=== PATIENT | female | born 1965 | race Caucasian/White ===

== ENCOUNTER 2019-09-13 09:48 | Outpatient (CLI) | payer OTHER, SELFPAY ==
--- NOTE | 2019-09-13 10:06 | MM_ITS ---
WS: [id number] BILATERAL SCREENING DIGITAL MAMMOGRAM WITH CAD HISTORY: SCREENING COMPARISON: 05/29/2017 and 01/22/2015 Bilateral CC and MLO views submitted. Computer aided detection analyzed. Breast composition: There are scattered areas of fibroglandular density. No suspicious masses, microc alcifications or architectural distortion. Stable intramammary lymph nodes upper outer quadrant of ea ch breast. MM/[place] [id number] IMPRESSION: BI-RADS: 2-Benign FOLLOW UP: 1 Year Follow-up
== END 2019-09-13 09:49 | disposition home or self-care (01) ==
LOC: RADSHAW 09:54
PROVIDERS: PCP Registered Nurse; Visit Provider Registered Nurse
DX: Z12.31 Encounter for screening mammogram for malignant neoplasm of breast (principal)
CPT/HCPCS: 77067

== ENCOUNTER → 2020-04-24 13:41 | Outpatient (BNVA) | payer OTHER, SELFPAY | PROVIDERS: PCP Registered Nurse; Visit Provider Nurse Practitioner Family | DX: Z11.59 Encounter for screening for other viral diseases (principal) | CPT/HCPCS: 87635 ==

== ENCOUNTER → 2020-05-26 11:59 | Outpatient (BNVA) | payer OTHER, SELFPAY | PROVIDERS: PCP Registered Nurse; Visit Provider Nurse Practitioner Family | DX: Z20.828 Contact with and (suspected) exposure to other viral communicable diseases (principal) | CPT/HCPCS: 87635 ==

== ENCOUNTER → 2020-07-08 15:52 | Outpatient (BNVA) | payer OTHER, SELFPAY | PROVIDERS: PCP Registered Nurse; Visit Provider Nurse Practitioner Family | DX: Z20.828 Contact with and (suspected) exposure to other viral communicable diseases (principal) | CPT/HCPCS: 87635 ==

== ENCOUNTER 2022-05-10 15:47 | Outpatient (CLI) | payer OTHER, SELFPAY ==
--- NOTE | 2022-05-10 16:08 | MM_ITS ---
WS: [id number] BILATERAL 3D TOMOSYNTHESIS DIGITAL SCREENING MAMMOGRAPHY WITH CAD CLINICAL INFORMATION: SCREENING HISTORY: Screening mammogram. No current complaints. COMPARISON: September 13, 2019 TECHNIQUE: Bilateral CC and MLO views. FINDINGS: Scattered fibroglandular densities bilaterally. No suspicious focal mass, asymmetry, calcifications, or architectural distortion. No evidence of malignancy. A few incidental punctate calcifications. MM/[place] [id number] IMPRESSION: BI-RADS: 2-Benign FOLLOW UP: 1 Year Follow-up Recommend return to annual screening mammography.
== END 2022-05-10 15:48 | disposition home or self-care (01) ==
PROVIDERS: PCP Registered Nurse; Visit Provider Family Medicine
DX: Z12.31 Encounter for screening mammogram for malignant neoplasm of breast (principal)
CPT/HCPCS: 77063; 77067

== ENCOUNTER 2024-05-19 16:35 | Emergency (ER) | payer SELFPAY ==
[2024-05-19 17:13] VITALS: BP 131/83; PULSE 75; RESP 16; TEMP 36.7; O2SAT 98; BMI 24.0
--- NOTE | 2024-05-19 18:24 | XRR_ITS ---
PROCEDURE INFORMATION: Exam: XR Lumbosacral Spine Exam date and time: 05/19/2024 6:26 PM Age: 59 years old Clinical indication: Lumbago; Patient HX: Lower back pain post fall; Additional info: Injury low back pain TECHNIQUE: Imaging protocol: Radiologic exam of the lumbosacral spine. Views: 2 or 3 views. COMPARISON: No relevant prior studies available. FINDINGS: Bones/joints: Moderate multilevel spondylosis of the lumbar spine with facet arthrosis and osteophytosis. No evidence of acute fracture or subluxation. The sacrum is grossly intact. Soft tissues: Grossly unremarkable. XR/XR lumbar spine 2-3V* [id number] IMPRESSION: 1. No evidence of acute fracture or subluxation of the lumbar spine. If there is ongoing clinical suspicion for traumatic injury, consider correlation with CT.
--- NOTE | 2024-05-19 18:24 | XRR_ITS ---
PROCEDURE INFORMATION: Exam: XR Right Knee Exam date and time: 05/19/2024 6:26 PM Age: 59 years old Clinical indication: Right; Patient HX: RT knee pain post fall; Swelling TECHNIQUE: Imaging protocol: Radiologic exam of the right knee. Views: 3 views. COMPARISON: No relevant prior studies available. FINDINGS: Bones/joints: No evidence of acute fracture or subluxation. Moderate joint effusion. Sequela of Shohola Schlatter noted. Soft tissues: No gross soft tissue abnormality. XR/XR knee RT 3V* [id number] IMPRESSION: 1. Moderate joint effusion without evidence of acute fracture or subluxation raising the question of a radiographically occult fracture. CT may be helpful for further detail if clinically warranted.
--- NOTE | 2024-05-19 18:30 | ED_ITS ---
HPI - Back Pain/Injury General: Chief Complaint: Back Pain/Injury Stated Complaint: back injuy Time Seen by Provider: 05/19/24 18:03 History of Present Illness: 59-year-old female who comes in after brian redd to put up an expandable house. She notes that the floor was folded up, and as they were working, it fell in on her. It hit her in the low back, and she twisted her right knee. She complains mainly of pain across the very low back. Pain originally radiated down her legs, but is not now. She denies numbness and tingling. She denies significant weakness. No loss of bowel or bladder function. She took hydrocodone without much relief. She is having trouble walking due to the pain. She also has a painful swollen right knee, which she says is a more minor injury. Related Data Previous Rx's Medication Instructions Recorded hydrocodone 5 mg-acetaminophen 325 1 tab PO Q8H PRN pain #7 tabs 05/19/24 mg tablet methylprednisolone 4 mg tablets in See Rx Instructions PO .COMPLEX 05/19/24 a dose pack (Medrol (Sean)) #21 ea Allergies Allergy/AdvReac Type Severity Reaction Status Date / Time No Known Allergies Allergy Verified 07/08/20 14:39 [facility] ED PFSH: Social History Smoking and tobacco/nicotine status: former use of tobacco/nicotine Physical Exam Const: COMMON NORMALS: no acute distress GENERAL APPEARANCE: cooperative; not ill appearing and not frail appearing HENMT: COMMON NORMALS: normocephalic, atraumatic and Normal external nose present HEAD & SCALP: normocephalic and atraumatic FACE & SINUS: normal facial exam and face symmetric NOSE: Normal external nose present Eye: COMMON NORMALS: Equal, round and reactive pupils present and EOMs intact bilaterally PUPIL: Yes Equal, round and reactive pupils present Neck/C-Spine: GENERAL: Yes trachea midline Chest: CHEST: Yes Symmetrical chest wall rise Resp: COMMON NORMALS: normal respiratory effort, No retractions, No use of accessory muscles and clear to auscultation bilaterally AUSCULTATION: clear to auscultation bilaterally Cardio: COMMON NORMALS: regular rate and regular rhythm RATE: regular rate RHYTHM: regular rhythm GI: COMMON NORMALS: Normal to inspection, nondistended, normoactive bowel sounds present Back/Pelvis: OTHER: Pain across the first sacral segment, and bilateral SI joints in the superior region. Mild midline L5 pain. No paraspinal pain. Straight leg raise is negative bilaterally. Extremity: NARRATIVE EXTREMITY EXAM: Right knee mild effusion. No deformity. Minimal tenderness. Some mild discomfort with range of motion. Neuro: GUERA COMA SCALE: document GCS findings [place] coma scale eye opening: Spontaneous [place] coma scale verbal response: Orientated [place] coma scale motor response: Obey commands [place] coma scale total score: 15 SENSORY EXAM: Yes extremities (intact) Psych: COMMON NORMALS: speech normal SPEECH: Yes normal speech Skin: COMMON NORMALS: no rashes or lesions noted GENERAL SKIN EXAM: no rashes or lesions noted Course Vital Signs: Vital signs: Vital Signs Temperature 98.1 F 05/19/24 17:13 Pulse Rate 80 05/19/24 20:16 Respiratory Rate 16 05/19/24 17:13 Blood Pressure 134/78 05/19/24 20:16 Pulse Oximetry 100 05/19/24 20:16 MDM - Back Pain/Injury Medical Decision Making Knee joint effusion present on the right. No definite fracture. She will be placed in a knee immobilizer. No fractures in the back. There is grade 1 listhesis of L5 on S1. Labs Radiology Impressions Knee X-Ray 05/19/24 18:24 IMPRESSION: 1. Moderate joint effusion without evidence of acute fracture or subluxation raising the question of a radiographically occult fracture. CT may be helpful for further detail if clinically warranted. Lumbar Spine X-Ray 05/19/24 18:24 IMPRESSION: 1. No evidence of acute fracture or subluxation of the lumbar spine. If there is ongoing clinical suspicion for traumatic injury, consider correlation with CT. XR interpretation done by ED provider, pending radiology final review Discharge Plan Discharge Patient Disposition: Home Clinical Impression: Lumbar contusion, Injury of knee, right, Effusion of knee joint right Condition: Stable Prescriptions: New hydrocodone-acetaminophen 5-325 mg tablet 1 tab PO Q8H PRN (Reason: pain) Qty: 7 0RF methylprednisolone [Medrol (Sean)] 4 mg tablets,dose pack See Rx Instructions .ROUTE .COMPLEX Qty: 21 0RF Rx Instructions: orally per package directions Discharge Orders: Discharge ED (Routine); Ordered 05/19/24 Ordered By: Baron Berkowitz Referrals: Anh Bryant FNP [Primary Care Provider] - 4-7 days Patient Instructions: Acute Low Back Pain (ED), Contusion in Adults (ED), Swollen Knee Joint (ED), Opioid Safety, Pain Management Activity Restrictions/Additional Instructions: Call your doctor tomorrow for follow-up appointment this week. Do not stay in the knee immobilizer for more than 5 days to a week. Ice for pain and swelling to both areas. Medication as needed. Return for any problems. Coding Level of Care Code ED Erecting Crane Operator for Ondina Kirkland
[2024-05-19] MEDS: HYDROmorphone 1 mg/mL INJ 1 mL IM (18:52)
[2024-05-19] MEDS: ondansetron 4 MG Tablet PO (18:52)
[2024-05-19 20:16] VITALS: BP 134/78; PULSE 80; O2SAT 100
[2024-05-19] MEDS: oxyCODONE-APAP 5-325 mg Tablet 2 TAB PO (20:23)
== END 2024-05-19 20:24 | disposition home or self-care (01) ==
PROVIDERS: Emergency Provider Emergency Medicine; PCP Registered Nurse
DX: S30.0XXA Contusion of lower back and pelvis, initial encounter (principal); S89.91XA Unspecified injury of right lower leg, initial encounter; M25.461 Effusion, right knee; X58.XXXA Exposure to other specified factors, initial encounter
CPT/HCPCS: 72100; 73562; 96372; 99284; J1171; Q0162

== ENCOUNTER 2024-11-28 08:30 | Outpatient (CLI) | payer SELFPAY ==
--- NOTE | 2024-11-28 08:37 | MR_ITS ---
WS: [id number] MRI RIGHT SHOULDER HISTORY: NONTRAUMATIC COMPLETE TEAR OF R ROTATOR CUFF COMPARISON: None available. TECHNIQUE: Multiplanar sequences of the shoulder joint are submitted. Moderate AC joint arthritis. AC joint is narrowed with hypertrophic osteophytes. No os acromion. Split tear of the biceps tendon in the bicipital groove. Biceps tendon is being slightly displaced by humeral head osteophytes. Atrophy of the distal acromion. Moderate narrowing of the glenohumeral joint with high riding humeral head. Humeral head abuts the undersurface of the acromion with erosion and remodeling of the acromion. Full-thickness tear with retraction of the supraspinatus tendon. Tendon is retracted to the medial humeral head. Thickening and increased T2 signal throughout the subscapularis tendon with narrowing of the coracohumeral interval. No infraspinatus tendon tear. Moderate atrophy of the supraspinatus muscle. There is additional atrophy of the subscapularis and infraspinatus muscles. There is also a small amount of edema in the subsca pularis muscle. Loss of cartilage send the humeral head with osteophytes. Intrasubstance changes within the labrum but no tear. MR/MR shoulder RT wo con* [id number] IMPRESSION: 1. Advanced degenerative changes at the glenohumeral joint. 2. Complete tear of the supraspinatus tendon with retraction to the medial hum eral head. 3. Advanced tendinopathy of the subscapularis. No tear identified. 4. Muscle atrophy involving the supraspinatus, infraspinatus and subscapularis muscles. Greatest involving the supraspinatus muscle. 5. Moderate AC joint arthritis. 6. Split tear of the biceps tendon in the bicipital groove. 7. Loss of cartilage surrounding the humeral head and the osteophytosis.
== END 2024-11-28 08:31 | disposition home or self-care (01) ==
PROVIDERS: PCP Registered Nurse; Visit Provider Orthopaedic Surgery
DX: M75.121 Complete rotator cuff tear or rupture of right shoulder, not specified as traumatic (principal); M19.011 Primary osteoarthritis, right shoulder; M67.813 Other specified disorders of tendon, right shoulder; M62.511 Muscle wasting and atrophy, not elsewhere classified, right shoulder; S46.211A Strain of muscle, fascia and tendon of other parts of biceps, right arm, initial encounter; X58.XXXA Exposure to other specified factors, initial encounter; R93.7 Abnormal findings on diagnostic imaging of other parts of musculoskeletal system; M25.711 Osteophyte, right shoulder
CPT/HCPCS: 73221